=== PATIENT | male | born 1960 | race Caucasian/White ===

== ENCOUNTER → 2025-06-14 14:36 | Outpatient (REF) | payer MEDICARE, BC, SELFPAY | LOC: PAVMRI 14:36 | PROVIDERS: ATTENDING PHYSICIAN Nurse Practitioner Adult Health; FAMILY PHYSICIAN Family Medicine | DX: Z98.890 Other specified postprocedural states (principal); M21.371 Foot drop, right foot | CPT/HCPCS: 72148 ==